=== PATIENT | female | born 1965 | race American Indian/Alaskan Native ===

== ENCOUNTER 2019-04-26 11:09 | Emergency (ER) | payer OTHER ==
--- NOTE | 2019-04-26 12:07 | Emergency Department Report ---
Chief Complaint: Vaginal Bleeding Stated Complaint: PREG. 1 MONTH, POSS MISCARR - HPI History of Present Illness: 54 yo female c/o vag bleeding and + pregancy test + home Preg and office/md preg test several weeks ago pt reports lmp 01/2019 vag bleeding x 2-3 days - Exam Vital Signs: Vital Signs 04/26/19 11:17 Temperature 98 F Pulse Rate 79 Respiratory 18 Rate Blood Pressure 121/64 O2 Sat by Pulse 99 Oximetry Physical Exam: rrr ctab non tender abd MSE screening note: Focused history and physical exam performed. Due to findings the following was ordered: cbc hcg type and screen us not ordered until confirmed ED Disposition for MSE Condition: Stable Referrals: PRIMARY CARE, [Primary Care Provider] - 3-5 Days
[2019-04-26 12:31] LABS: Basophils # (Auto) 0.1 K/mm3 (0.0-0.1); Basophils % (Auto) 0.9 % (0.0-1.8); Eosinophils # (Auto) 0.2 K/mm3 (0.0-0.4); Eosinophils % (Auto) 2.5 % (0.0-4.3); Hematocrit 37.7 % (30.3-42.9); Hemoglobin 12.6 gm/dl (10.1-14.3); Lymphocytes # (Auto) 1.4 K/mm3 (1.2-5.4); Lymphocytes % (Auto) 19.5 % (13.4-35.0); Mean Corpuscular HGB Conc 33 % (30-34); Mean Corpuscular Volume 86 fl (79-97); Monocytes # (Auto) 0.6 K/mm3 (0.0-0.8); Platelet Count 229 K/mm3 (140-440); Red Blood Count 4.39 M/mm3 (3.65-5.03); Red Cell Distribution Width 15.1 % (13.2-15.2)
--- NOTE | 2019-04-26 12:41 | Emergency Department Report ---
ED Female HPI - General Chief complaint: Vaginal Bleeding Stated complaint: PREG. 1 MONTH, POSS MISCARR Time Seen by Provider: 04/26/19 12:26 Source: patient Mode of arrival: Ambulatory Limitations: No Limitations - History of Present Illness Initial comments: This is a 54-year-old -Prydeinig female who presents to the emergency room with vaginal bleeding and pelvic pain. Patient states she had a positive test and ultrasound 1-1/2 weeks ago with a clinic. Her last menstrual period was 02/11/2019, A1 miscarriage. She reports cramping pelvic pain started last night. Patient states vaginal discharge started 3 days ago. Reports vaginal bleeding started 2-3 days ago. She changed 2 pads today. Patient states she is sexually active and possibly could be . States multiple women in her family deliver in late 40s early 50s. She denies urinary frequency, urgency, dysuria, back pain, dizziness, or chest pain. MD Complaint: vaginal bleeding Onset/Timin -: days(s) Location: suprapubic Radiation: non-radiating Severity: mild Severity scale (0 -10): 3 Quality: cramping Consistency: intermittent Improves with: none Worsens with: none Are you Now?: Yes Associated Symptoms: vaginal discharge, vaginal bleeding, abdominal pain. denies: nausea/vomiting, fever/chills, headaches, hematuria, rash, seizure, shortness of breath, weakness - Related Data Sexually active: No : 3 Para: 1 A: 1 (miscarriage) Allergies Allergy/AdvReac Type Severity Reaction Status Date / Time No Known Allergies Allergy Unverified 04/26/19 11:20 ED Review of Systems ROS: Stated complaint: PREG. 1 MONTH, POSS MISCARR Other details as noted in HPI Constitutional: denies: chills, fever Respiratory: denies: cough, shortness of breath, wheezing Cardiovascular: denies: chest pain, palpitations Gastrointestinal: abdominal pain (pelvic pain). denies: nausea, diarrhea Genitourinary: other (vaginal bledding during ). denies: urgency, dysuria Musculoskeletal: denies: back pain, joint swelling, arthralgia Skin: denies: rash, lesions Neurological: denies: headache, weakness, paresthesias Psychiatric: denies: anxiety, depression ED Past Medical Hx - Past Medical History Previous Medical History?: No - Surgical History Past Surgical History?: No - Social History Smoking Status: Never Smoker Substance Use Type: Alcohol ED Physical Exam - General Limitations: No Limitations General appearance: alert, in no apparent distress - Respiratory Respiratory exam: Present: normal lung sounds bilaterally. Absent: respiratory distress - Cardiovascular Cardiovascular Exam: Present: regular rate, normal rhythm. Absent: systolic murmur, diastolic murmur, rubs, gallop - GI/Abdominal GI/Abdominal exam: Present: soft, tenderness (mild suprapubic tenderness), normal bowel sounds. Absent: distended, guarding, rebound, rigid, hernia - External exam: Present: normal external exam. Absent: erythema, swelling, lesions, lacerations, ecchymosis, bleeding Speculum exam: Present: vaginal bleeding (the os is open with moderate amount of bleeding). Absent: tissue, laceration Bi-manual exam: Present: uterine enlargement. Absent: cervical motion tendernes, adnexal tenderness, adnexal mass, uterine tenderness - Back Exam Back exam: Absent: CVA tenderness (R), CVA tenderness (L) - Neurological Exam Neurological exam: Present: alert, oriented X3, normal gait - Psychiatric Psychiatric exam: Present: normal affect, normal mood - Skin Skin exam: Present: warm, dry, intact, normal color. Absent: rash ED Course Vital Signs 04/26/19 04/26/19 11:17 13:13 Temperature 98 F Pulse Rate 79 Respiratory 18 18 Rate Blood Pressure 121/64 O2 Sat by Pulse 99 99 Oximetry ED Medical Decision Making - Lab Data Result diagrams: 04/26/19 12:05 Lab Results 04/26/19 04/26/19 04/26/19 Range/Units 12:05 12:05 12:05 WBC 7.3 (4.5-11.0) K/mm3 RBC 4.39 (3.65-5.03) M/mm3 Hgb 12.6 (10.1-14.3) gm/dl Hct 37.7 (30.3-42.9) % MCV 86 (79-97) fl MCH 29 (28-32) pg MCHC 33 (30-34) % RDW 15.1 (13.2-15.2) % Plt Count 229 (140-440) K/mm3 Lymph % (Auto) 19.5 (13.4-35.0) % Ashe % (Auto) 8.0 H (0.0-7.3) % Eos % (Auto) 2.5 (0.0-4.3) % Baso % (Auto) 0.9 (0.0-1.8) % Lymph # 1.4 (1.2-5.4) K/mm3 Ashe # 0.6 (0.0-0.8) K/mm3 Eos # 0.2 (0.0-0.4) K/mm3 Baso # 0.1 (0.0-0.1) K/mm3 Seg Neutrophils % 69.1 (40.0-70.0) % Seg Neutrophils # 5.1 (1.8-7.7) K/mm3 HCG, Quant 1680 H (0-4) mIU/mL Blood Type O POSITIVE Antibody Screen Negative - Radiology Data Radiology results: report reviewed ULTRASOUND OBSTETRIC INDICATION / CLINICAL INFORMATION: vag bleeding, pregnacy. Clinical Gestational Age (GA): 9 weeks 2 days by last menstrual period TECHNIQUE: Transabdominal and Transvaginal. COMPARISON: None available. FINDINGS: GESTATIONAL SAC: Not identified. The uterus measures 8.7 x 6.9 x 6.4 cm. Endometrial stripe thickness of 3 mm. No endometrial lesion is present. There are multiple fibroids measuring up to about 2.47 m in greatest dimension. ADNEXA: No significant abnormality. No corpus luteum is identified on either ovary. FREE FLUID: None. ADDITIONAL FINDINGS: None. IMPRESSION: No intrauterine gestational sac is identified. This considered a of unknown location (ectopic has not been excluded). Close clinical monitoring is recommended, with serial measurement of beta-hCG and repeat ultrasound as needed. - Medical Decision Making This is a 54-year-old female who presents with vaginal bleeding during . Vitals are stable inpatient in no acute distress. CBC, UA, hCG, Type&Screen, OB ultrasound obtained. Pelvic exam performed os is open with moderate amount of bleeding, no cervical motion tenderness, no adenexal tenderness bilaterally. OB ultrasound findings of no intrauterine gestational sac. This considered a of unknown location (ectopic has not been excluded). Close clinical monitoring is recommended, with serial measurement of beta-hCG and repeat ultrasound as needed. Based on History, Exam, and ED Workup patients presentation not consistent with molar , serious bacterial infection, central process or other emergency. Instructed to have repeat hCG and/or US in 48 hours with [facility] or in ER. Referral to [facility]. Discharged home with return precautions and instructions for prompt [facility] follow-up. Critical care attestation.: If time is entered above; I have spent that time in minutes in the direct care of this critically ill patient, excluding procedure time. ED Disposition Clinical Impression: Vaginal bleeding during , Threatened , Positive blood pregnan cy test Disposition: TO HOME OR SELFCARE Is pt being admited?: No Condition: Stable Instructions: Threatened Miscarriage (ED) Additional Instructions: You will need to follow up with an [facility] or return to the emergency room and 2 days to have repeat labs to rule out a threatened miscarriage or ectopic . Your hCG level on today's visit was 1680. Follow-up with an [facility] from the list provided below. Return to the emergency room if worsening symptoms such as severe abdominal pain, back pain, shortness of breath, or dizziness. Referrals: [facility] [Provider Group] - 3-5 Days [facility] [Provider Group] - 3-5 Days [facility] [Provider Group] - 3-5 Days Forms: Work/School Release Form(ED) Time of Disposition: 14:53
--- NOTE | 2019-04-26 13:56 | Ultrasound Report ---
ULTRASOUND OBSTETRIC INDICATION / CLINICAL INFORMATION: vag bleeding, pregnacy. Clinical Gestational Age (GA): 9 weeks 2 days by last menstrual period TECHNIQUE: Transabdominal and Transvaginal. COMPARISON: None available. FINDINGS: GESTATIONAL SAC: Not identified. The uterus measures 8.7 x 6.9 x 6.4 cm. Endometrial stripe thickness of 3 mm. No endometrial lesion i s present. There are multiple fibroids measuring up to about 2.47 m in greatest dimension. ADNEXA: No significant abnormality. No corpus luteum is identified on either ovary. FREE FLUID: None. ADDITIONAL FINDINGS: None. IMPRESSION: No intrauterine gestational sac is identified. This considered a of unknown location (ectop ic has not been excluded). Close clinical monitoring is recommended, with serial measuremen t of beta-hCG and repeat ultrasound as needed. Signer Name: Victoriano Childers MD Signed: 04/26/2019 1:51 PM Workstation Name: [id number]
[2019-04-26 15:35] VITALS: BP 105/72
== END 2019-04-26 15:34 | disposition home or self-care (01) ==
LOC: ED 11:09
DX: O20.0 Threatened abortion (principal); Z3A.09 9 weeks gestation of pregnancy
CPT/HCPCS: 36415; 76801; 76817; 84702; 85025; 86850; 86900; 86901

== ENCOUNTER 2019-04-28 09:08 | Emergency (ER) | payer SELFPAY | END 2019-04-28 12:00 | disposition left against medical advice (07) | LOC: ED 09:08 | DX: Z32.00 Encounter for pregnancy test, result unknown (principal); Z53.21 Procedure and treatment not carried out due to patient leaving prior to being seen by health care provider | CPT/HCPCS: 36415; 84702 ==